=== PATIENT | male | born 1960 | race Caucasian/White ===

== ENCOUNTER 2019-08-02 20:22 | Inpatient (IN) | payer SELFPAY ==
[~2019-08-02] VITALS: Ht 182.9 cm; Wt 128.4 kg
--- NOTE | 2019-08-02 21:53 | PHYS DOC ---
Past Medical History Past Medical History: No Pertinent History Past Surgical History: Other Additional Past Surgical Histo: CAROTID SX Additional Information: 1/2 PACK/DAY Alcohol Use: Sober Drug Use: None Adult General Chief Complaint Chief Complaint: MECHANICAL FALL HPI HPI 58-year-old male presents to the emergency department with syncopal episode. Patient has abrasions to his face. Currently patient was found on the ground with loss of consciousness at the [facility]. He does not recall any events. Patient has a history of right carotid endarterectomy within the last 60 days. Patient denies any chest pain, he does have some shortness of breath, denies any nausea or vomiting at this time. He does complain of a headache. He does complain of abdominal pain on exam he has bruising appreciated to his right abdomen Review of Systems Review of Systems Constitutional: Denies fever or chills [] Respiratory: Denies cough or shortness of breath [] Cardiovascular: No additional information not addressed in HPI [] GI: Denies abdominal pain, nausea, vomiting, bloody stools or diarrhea [] Musculoskeletal: Denies back pain or joint pain [] Neurologic: + headache, focal weakness or sensory changes [] All other systems were reviewed and found to be within normal limits, except as documented in this note. Current Medications Current Medications Current Medications Medications (Trade) Dose Ordered Sig/[facility] Start Time Stop Time Status Last Admin Dose Admin Acetaminophen/ Hydrocodone Bitart (Lortab 5/325) 1 tab 1X ONCE 08/03/19 00:30 08/03/19 00:31 DC 08/03/19 00:13 1 TAB Info (CONTRAST GIVEN -- Rx MONITORING) 1 each PRN DAILY PRN 08/02/19 23:30 08/04/19 23:29 Iohexol (Omnipaque 300 Mg/ml) 75 ml 1X ONCE 08/02/19 23:30 08/02/19 23:31 DC 08/02/19 23:38 75 ML Morphine Sulfate (Morphine Sulfate) 4 mg 1X ONCE 08/02/19 23:00 08/02/19 23:01 DC 08/02/19 22:40 4 MG Ondansetron HCl (Zofran) 4 mg 1X ONCE 08/02/19 23:00 08/02/19 23:01 DC 08/02/19 22:40 4 MG Allergies Allergies Allergies Coded Allergies Type Severity Reaction Last Updated Verified No Known Drug Allergies 08/02/19 No Physical Exam Physical Exam Constitutional: Well developed, well nourished, no acute distress, non-toxic appearance. [] HENT: Normocephalic, atraumatic, bilateral external ears normal, oropharynx moist, no oral exudates, nose normal. [] Eyes: PERRLA, EOMI, conjunctiva normal, no discharge. [] Neck: Normal range of motion, no tenderness, supple, no stridor. [] Cardiovascular:Heart rate regular rhythm, no murmur [] Lungs & Thorax: Bilateral breath sounds clear to auscultation [] Abdomen: Bowel sounds normal, soft, TTP right lower abdomen, + bruising appreciated to right flank area[] Skin: Warm, dry, no erythema, no rash. [] Back: No tenderness, no CVA tenderness. [] Extremities: No tenderness, no edema. [] Neurologic: Alert and oriented X 3, no focal deficits noted. [] Psychologic: Affect normal, judgement normal, mood normal. [] Current Patient Data Vital Signs Vital Signs Date Time Temp Pulse Resp B/P (MAP) Pulse Ox O2 Delivery O2 Flow Rate FiO2 08/03/19 00:30 99 17 93 08/03/19 00:13 Room Air 08/02/19 20:31 97.5 128/80 (96) 97.5 Lab Values Laboratory Tests Test 08/02/19 22:20 White Blood Count 17.9 x10^3/uL (4.0-11.0) H Red Blood Count 5.15 x10^6/uL (4.30-5.70) Hemoglobin 14.4 g/dL (13.0-17.5) Hematocrit 43.8 % (39.0-53.0) Mean Corpuscular Volume 85 fL (79-100) Mean Corpuscular Hemoglobin 28 pg (25-35) Mean Corpuscular Hemoglobin Concent 33 g/dL (31-37) Red Cell Distribution Width 14.7 % (11.5-14.5) H Platelet Count 314 x10^3/uL (140-400) Neutrophils (%) (Auto) 84 % (31-73) H Lymphocytes (%) (Auto) 8 % (24-48) L Monocytes (%) (Auto) 7 % (0-9) Eosinophils (%) (Auto) 0 % (0-3) Basophils (%) (Auto) 0 % (0-3) Neutrophils # (Auto) 15.1 x10^3/uL (1.8-7.7) H Lymphocytes # (Auto) 1.4 x10^3/uL (1.0-4.8) Monocytes # (Auto) 1.3 x10^3/uL (0.0-1.1) H Eosinophils # (Auto) 0.1 x10^3/uL (0.0-0.7) Basophils # (Auto) 0.1 x10^3/uL (0.0-0.2) Segmented Neutrophils % 76 % (35-66) H Band Neutrophils % 4 % (0-9) Lymphocytes % 14 % (24-48) L Monocytes % 5 % (0-10) Basophils % 1 % (0-3) Platelet Estimate Adequate (ADEQUATE) Prothrombin Time 13.1 SEC (11.7-14.0) Prothrombin Time INR 1.0 (0.8-1.1) D-Dimer (Yoselyn) 0.91 ug/mlFEU (0.00-0.50) H Sodium Level 135 mmol/L (136-145) L Potassium Level 4.2 mmol/L (3.5-5.1) Chloride Level 99 mmol/L (98-107) Carbon Dioxide Level 26 mmol/L (21-32) Anion Gap 10 (6-14) Blood Urea Nitrogen 7 mg/dL (8-26) L Creatinine 0.8 mg/dL (0.7-1.3) Estimated GFR (Cockcroft-Gault) 100.0 BUN/Creatinine Ratio 9 (6-20) Glucose Level 147 mg/dL (70-99) H Calcium Level 9.0 mg/dL (8.5-10.1) Total Bilirubin 0.2 mg/dL (0.2-1.0) Aspartate Amino Transferase (AST) 16 U/L (15-37) Alanine Aminotransferase (ALT) 19 U/L (16-63) Alkaline Phosphatase 65 U/L (46-116) Troponin I Quantitative < 0.017 ng/mL (0.000-0.055) Total Protein 7.1 g/dL (6.4-8.2) Albumin 3.2 g/dL (3.4-5.0) L Albumin/Globulin Ratio 0.8 (1.0-1.7) L Laboratory Tests 08/02/19 22:20 Laboratory Tests 08/02/19 22:20 EKG EKG EKG reviewed, tachycardia, 124, normal axis appreciated[] Radiology/Procedures Radiology/Procedures [facility] [address] [place] [address] IMAGING REPORT Signed PATIENT: JENNIFER EDMOND ACCOUNT: [id number] : 1960 LOCATION: ER AGE: 58 SEX: M EXAM STATUS: REG ER ORD. PHYSICIAN: SAPNA MOTA MD REASON: fall, syncope, head injury, coumadin PROCEDURE: CT HEAD AND CERVICAL SPINE WO CT Head W/O Contrast: History: Pain status post fall with syncope and head injury Comparison: none Axial images were obtained without contrast. There is large old strokes in the left parietal lobe and the right occipital lobe. The fernandes and white matter appears normal and symmetrical for the patients age. There is no mass effect, extraaxial fluid collections or hydrocephalus. There is no gross bleed. There is no focal loss of fernandes-white matter distinction to suggest acute ischemia, i.e. stroke. Impression: Bilateral old strokes. No acute findings. End impression CT C-Spine without contrast: Clinical History: Pain status post fall Technique: Axial helical images of the cervical spine were obtained without contrast, axial coronal and sagittal reconstruction was performed. Findings: There is no loss of vertebral body stature. There is no prevertebral soft tissue swelling. The vertebral bodies are well aligned. There is straightening of the normal cervical lordosis which can be positional or could be chronic. The C1-C2 relationship is normal. The visualized osseous structures appear normal. Evaluation of the central canal is limited without contrast. There is multiple posterior disc bulges resulting in flattening of the thecal sac. There does not appear to be gross flattening of the cervical cord. There is moderate narrowing of multiple neuroforamen. Impression: No acute findings. Clinical correlation suggested. PQRS Compliance Statement: One or more of the following individualized dose reduction techniques were utilized for this examination: 1. Automated exposure control 2. Adjustment of the mA and/or kV according to patient size 3. Use of iterative reconstruction technique Electronically signed by: Rickie Raymundo III, MD (08/02/2019 11:36 PM) [facility] DICTATED and SIGNED BY: RICKIE RAYMUNDO III, MD DATE: 08/02/19 2336 [] [facility] [address] [place] [address] IMAGING REPORT Signed PATIENT: JENNIFER EDMOND ACCOUNT: [id number] : 1960 LOCATION: ER AGE: 58 SEX: M EXAM STATUS: REG ER ORD. PHYSICIAN: SAPNA MOTA MD REASON: Fall, right abdominal wall hematoma PROCEDURE: CT ABD PELV W/ IV CONTRST ONLY Study: CT abdomen/pelvis with intravenous contrast Indication: Fall. Right abdominal wall hematoma. Comparison: None. Technique: Helical CT imaging performed of the abdomen and pelvis after the intravenous administration of 75 cc Omnipaque 300 contrast. Sagittal and coronal reformats were obtained. One or more of the following individualized dose reduction techniques were utilized for this examination: 1. Automated exposure control 2. Adjustment of the mA and/or kV according to patient size 3. Use of iterative reconstruction technique. Findings: Mild basilar volume loss. Partially visualized coronary artery calcifications. No focal abnormality of the liver. Unremarkable gallbladder, pancreas, spleen and adrenal glands. Symmetric kidney size and enhancement. No hydroureteronephrosis. Unremarkable urinary bladder and prostate. Unremarkable colon. The appendix is not visualized. Nonobstructed small bowel. Unremarkable stomach. Mild scattered atherosclerotic calcifications. No free fluid or air. No adenopathy. Symmetric muscular bulk without evidence for a large intramuscular hematoma is. Ovoid soft tissue density focus within the subcutaneous tissues just to the left of the dorsal midline overlying the paraspinous musculature. This is seen on image 39 series 3 measuring approximately 4.1 cm transverse by 2.3 cm AP by 2.8 cm craniocaudal. This finding is well circumscribed and there are no surrounding inflammatory changes. Subcutaneous fatty reticulation along the lateral aspect of both hips appearing relatively symmetric. No displaced rib fracture is identified. No acute fracture seen to involve the visualized spine or pelvis. Manifestations of diffuse idiopathic skeletal hyperostosis and scattered degenerative changes. Impression: 1. No large body wall hematoma is identified or fracture of the visualized osseous structures. No acute intra-abdominal or pelvic abnormality. 2. Ovoid, well-circumscribed soft tissue density focus within the dorsal left paramidline subcutaneous fat. This is favored to represent a benign finding such as a sebaceous cyst or other inflammatory process. This is not related to acute trauma. Recommend correlation with direct inspection. If there is concern based on physical exam or if there is subsequent growth, nonemergent targeted sonography could be performed to evaluate for suspicious features. 3. Chronic findings as detailed above. Electronically signed by: CRISTIANE SMITH MD (08/02/2019 11:51 PM) [facility] DICTATED and SIGNED BY: CRISTIANE SMITH MD DATE: 08/02/19 9012 [facility] [address] [place] [address] IMAGING REPORT Signed PATIENT: JENNIFER EDMOND ACCOUNT: [id number] : 1960 LOCATION: [address] [place] [address] AGE: 59 SEX: M EXAM STATUS: ADM IN ORD. PHYSICIAN: SAPNA MOTA MD REASON: elevated ddimer, syncope PROCEDURE: LUNG VENT/PERFUSION SCAN(VQ) Study: NUCLEAR MEDICINE VENTILATION/PERFUSION SCAN History: Elevated d-dimer. Syncope. Comparison: None. Technique: Ventilation portion performed after inhalation of 15 mCi xenon-133. Perfusion portion performed after intravenous administration of 5 mCi Technetium 99m MAA. Anterior and posterior planar images of the lungs were obtained to include inspiration, equilibrium and washout phases for the ventilation component. Findings: Ventilation images: Symmetric radiotracer with inspiration and no retained activity on the washout phase. Perfusion images: Collectively there is decreased radiotracer deposition within the left lung relative to the right as well as more localized regions of decreased radiotracer activity within the left more so than right lungs, however there is still some activity in these regions suggesting the absence of a complete mismatch defect. IMPRESSION: Intermediate probability for pulmonary embolism. Electronically signed by: CRISTIANE SMITH MD (08/03/2019 5:38 AM) [id number] DICTATED and SIGNED BY: CRISTIANE SMITH MD DATE: 08/03/19 0538 Course & Med Decision Making Course & Med Decision Making Pertinent Labs and Imaging studies reviewed. (See chart for details) []58-year-old male presents to the emergency department with syncopal episode. Patient has abrasions to his face. Currently patient was found on the ground with loss of consciousness at the [facility]. He does not recall any events. Patient has a history of right carotid endarterectomy within the last 60 days. Patient denies any chest pain, he does have some shortness of breath, denies any nausea or vomiting at this time. He does complain of a headache. Labs/Imaging reviewed Evidence of elevated ddimer upon evaluation - v/q scan ordered --- intermediate probability of PE results early AM CT head negative for acute process Given syncope, will admit and follow Umer Disclaimer Umer Disclaimer This electronic medical record was generated, in whole or in part, using a voice recognition dictation system. Departure Departure Impression: Primary Impression: Syncope Disposition: ADMITTED INPATIENT Admitting Physician: KELECHI Condition: GUARDED Referrals: NO PCP (PCP) SAPNA MOTA MD Aug 02, 2019 21:53
[2019-08-02 22:27] LABS: BASO # 0.1 x10^3/uL (0.0-0.2); BASO % 0 % (0-3); EOS # 0.1 x10^3/uL (0.0-0.7); EOS % 0 % (0-3); HEMATOCRIT 43.8 % (39.0-53.0); HEMOGLOBIN 14.4 g/dL (13.0-17.5); LYMPH # 1.4 x10^3/uL (1.0-4.8); LYMPH % 8 % (24-48); MEAN CORPUSCULAR HEMOGLOBIN 28 pg (25-35); MEAN CORPUSCULAR HGB CONC 33 g/dL (31-37); MEAN CORPUSCULAR VOLUME 85 fL (79-100); MONO # 1.3 x10^3/uL (0.0-1.1); MONO % 7 % (0-9); NEUT # 15.1 x10^3/uL (1.8-7.7); NEUT % 84 % (31-73); PLATELET COUNT 314 x10^3/uL (140-400); RED BLOOD COUNT 5.15 x10^6/uL (4.30-5.70); RED CELL DISTRIBUTION WIDTH 14.7 % (11.5-14.5); WHITE BLOOD COUNT 17.9 x10^3/uL (4.0-11.0)
[2019-08-02 22:36] LABS: CREATININE 0.8 mg/dL (0.7-1.3); POTASSIUM 4.2 mmol/L (3.5-5.1)
[2019-08-02 22:37] LABS: PROTHROMBIN TIME PATIENT 13.1 SEC (11.7-14.0)
[2019-08-02 22:42] LABS: ALBUMIN 3.2 g/dL (3.4-5.0); ALBUMIN/GLOBULIN RATIO 0.8 (1.0-1.7); TOTAL BILIRUBIN 0.2 mg/dL (0.2-1.0); TOTAL PROTEIN 7.1 g/dL (6.4-8.2)
[2019-08-02 22:52] LABS: % BANDS 4 % (0-9); % BASOS 1 % (0-3); % LYMPHS 14 % (24-48); % MONOS 5 % (0-10); % SEGS 76 % (35-66); PLT ESTIMATE ADEQUATE (ADEQUATE)
[2019-08-02] MEDS ORDERED: MORPHINE SULFATE 4 MG/ML VIAL. IV ONE (23:00)
[2019-08-02] MEDS ORDERED: ONDANSETRON PF 4 MG/2 ML VIAL. IVP ONE (23:00)
[2019-08-02] MEDS ORDERED: IOHEXOL 300 MG/ML 100ML VIAL. ONE (23:20)
[2019-08-02] MEDS ORDERED: CONTRAST GIVEN. MC PRN (23:30)
[2019-08-02] MEDS ORDERED: IOHEXOL 300 MG/ML 100ML VIAL. IV ONE (23:30)
--- NOTE | 2019-08-02 23:39 | RAD ---
CT Head W/O Contrast: History: Pain status post fall with syncope and head injury Comparison: none Axial images were obtained without contrast. There is large old strokes in the left parietal lobe and the right occipital lobe. The fernandes and white matter appears normal and symmetrical for the patients age. There is no mass effect, extraaxial fluid collections or hydrocephalus. There is no gross bleed. There is no focal loss of fernandes-white matter distinction to suggest acute ischemia, i.e. stroke. Impression: Bilateral old strokes. No acute findings. End impression CT C-Spine without contrast: Clinical History: Pain status post fall Technique: Axial helical images of the cervical spine were obtained without contrast, axial coronal and sagittal reconstruction was performed. Findings: There is no loss of vertebral body stature. There is no prevertebral soft tissue swelling. The vertebral bodies are well aligned. There is straightening of the normal cervical lordosis which can be positional or could be chronic. The C1-C2 relationship is normal. The visualized osseous structures appear normal. Evaluation of the central canal is limited without contrast. There is multiple posterior disc bulges resulting in flattening of the thecal sac. There does not appear to be gross flattening of the cervical cord. There is moderate narrowing of multiple neuroforamen. Impression: No acute findings. Clinical correlation suggested. PQRS Compliance Statement: One or more of the following individualized dose reduction techniques were utilized for this examination: 1. Automated exposure control 2. Adjustment of the mA and/or kV according to patient size 3. Use of iterative reconstruction technique Electronically signed by: Remy Prince III, MD (08/02/2019 11:36 PM) [facility]
--- NOTE | 2019-08-02 23:53 | RAD ---
Study: CT abdomen/pelvis with intravenous contrast Indication: Fall. Right abdominal wall hematoma. Comparison: None. Technique: Helical CT imaging performed of the abdomen and pelvis after the intravenous administration of 75 cc Omnipaque 300 contrast. Sagittal and coronal reformats were obtained. One or more of the following individualized dose reduction techniques were utilized for this examination: 1. Automated exposure control 2. Adjustment of the mA and/or kV according to patient size 3. Use of iterative reconstruction technique. Findings: Mild basilar volume loss. Partially visualized coronary artery calcifications. No focal abnormality of the liver. Unremarkable gallbladder, pancreas, spleen and adrenal glands. Symmetric kidney size and enhancement. No hydroureteronephrosis. Unremarkable urinary bladder and prostate. Unremarkable colon. The appendix is not visualized. Nonobstructed small bowel. Unremarkable stomach. Mild scattered atherosclerotic calcifications. No free fluid or air. No adenopathy. Symmetric muscular bulk without evidence for a large intramuscular hematoma is. Ovoid soft tissue density focus within the subcutaneous tissues just to the left of the dorsal midline overlying the paraspinous musculature. This is seen on image 39 series 3 measuring approximately 4.1 cm transverse by 2.3 cm AP by 2.8 cm craniocaudal. This finding is well circumscribed and there are no surrounding inflammatory changes. Subcutaneous fatty reticulation along the lateral aspect of both hips appearing relatively symmetric. No displaced rib fracture is identified. No acute fracture seen to involve the visualized spine or pelvis. Manifestations of diffuse idiopathic skeletal hyperostosis and scattered degenerative changes. Impression: 1. No large body wall hematoma is identified or fracture of the visualized osseous structures. No acute intra-abdominal or pelvic abnormality. 2. Ovoid, well-circumscribed soft tissue density focus within the dorsal left paramidline subcutaneous fat. This is favored to represent a benign finding such as a sebaceous cyst or other inflammatory process. This is not related to acute trauma. Recommend correlation with direct inspection. If there is concern based on physical exam or if there is subsequent growth, nonemergent targeted sonography could be performed to evaluate for suspicious features. 3. Chronic findings as detailed above. Electronically signed by: CRISTIANE SMITH MD (08/02/2019 11:51 PM) [facility]
[2019-08-03] MEDS ORDERED: HYDROcodone/APAP 5/325MG 1 TAB TABLET PO ONE (00:30)
[2019-08-03 02:45] VITALS: BP 106/56
[2019-08-03] MEDS ORDERED: TRAZ-118 PO (02:53)
[2019-08-03] MEDS ORDERED: warfarin (02:53)
[2019-08-03] MEDS ORDERED: furosemide (02:53)
--- NOTE | 2019-08-03 04:13 | NUR ---
Patient to room at approximately 0200, per patient's report, assessment started at 0230, requests shower, wanted privacy, is informed that this clinical writer would be on outside of the bathroom door, due to the admission diagnosis of syncope, patient increases in agitation as this clinical writer asks him if he is doing alright, not dizzy, etc. when patient was finished with shower, the monitor reapplied, this clinical writer gets MRSA swab and nozin treatment, patient replies,"I told you I just got out of the hospital 3 days ago with the flu..what kind is it?...I don't need that. (to which he did not tell this clinical writer this), patient had said he had antibiotics for an infection at his carotid endartarectomy site, then patient reports to have been in the hospital 3 days ago..or a month ago.."I told you that..." This clinical writer attempts to explain protocol regarding MRSA, as in history (which he has), and living in a facility with many other people (as in [facility]), Patient shouts, "so do I need to be checked since I'm in here? there are a lot op people here>>>" This clinical writer walks out of the room....
--- NOTE | 2019-08-03 05:41 | RAD ---
Study: NUCLEAR MEDICINE VENTILATION/PERFUSION SCAN History: Elevated d-dimer. Syncope. Comparison: None. Technique: Ventilation portion performed after inhalation of 15 mCi xenon-133. Perfusion portion performed after intravenous administration of 5 mCi Technetium 99m MAA. Anterior and posterior planar images of the lungs were obtained to include inspiration, equilibrium and washout phases for the ventilation component. Findings: Ventilation images: Symmetric radiotracer with inspiration and no retained activity on the washout phase. Perfusion images: Collectively there is decreased radiotracer deposition within the left lung relative to the right as well as more localized regions of decreased radiotracer activity within the left more so than right lungs, however there is still some activity in these regions suggesting the absence of a complete mismatch defect. IMPRESSION: Intermediate probability for pulmonary embolism. Electronically signed by: CRISTIANE SMITH MD (08/03/2019 5:38 AM) [facility]
--- NOTE | 2019-08-03 06:38 | EKG ---
[facility] [address] [place] [address] Test Date: 2019-08-02 Test Time: 20:34:34 Pat Name: JENNIFER EDMOND Department: Room: Gender: M Cashier Wrapper: : 1960 Requested By: SAPNA MOTA Order Number: [id number] Reading MD: Measurements Intervals [place] Rate: 124 P: VT: QRS: 101 QRSD: 122 T: 28 QT: 342 QTc: 496 Interpretive Statements IRREGULAR RHYTHM, NO P-WAVE FOUND VENTRICULAR PREMATURE COMPLEX(ES) RVH WITH REPOLARIZATION ABNORMALITY QRS(T) CONTOUR ABNORMALITY CONSIDER ANTEROLATERAL INFARCT CONSISTENT WITH INFERIOR INFARCT PROBABLY OLD ABNORMAL ECG RI6.01 No previous ECG available for comparison
[2019-08-03 07:53] VITALS: BP 108/58
[2019-08-03] MEDS ORDERED: WARF2TAB96 PO (09:19)
[2019-08-03] MEDS ORDERED: FURO40TA4 PO (09:19)
--- NOTE | 2019-08-03 10:35 | NUR ---
Pt found in visitors parking lot by 2nd floor nursing staff. Pt stated he is "waiting on his sister to bring paperwork." This is the second time patient has tried to leave the unit today. Security has been notified. Addendum: 08/03/19 at 1056 by BONG ANDUJAR RN Pt walked back up to the unit. This RN then spoke to patient about not being able to leave the floor. Pt smacked his lips at patient and then said "I was just going out there to see when my sister was leaving from [place]." This RN stated that if he attempts to leave or does leave the floor again, then I will have him sign an AMA paper, because leaving the floor is not an option. Pt verbalized understanding. Will continue to monitor.
[2019-08-03] MEDS ORDERED: NICOTINE 21MG PATCH. TD SCH (11:00)
[2019-08-03] MEDS ORDERED: FUROSEMIDE 40 MG TABLET. PO SCH (11:00)
[2019-08-03 11:18] VITALS: BP 103/68
--- NOTE | 2019-08-03 12:18 | SSS ---
ADMIT DATE: 08/03/2019 CHIEF COMPLAINT: Syncope. HISTORY OF PRESENT ILLNESS: The patient is a pleasant 59-year-old male who had right carotid endarterectomy at another facility within the past month. Basically, he was feeling little dizzy yesterday and sat down. I think he stood back up and then had a syncopal episode. He did bump his head had some abrasions on his forehead. He did have a little bit of a headache when he presented to the ER. He was admitted overnight for observation. This morning, he is alert and oriented, wanting to go. I guess he lives at the [facility]. He states he is a homeless . He keeps leaving the floor and smoking downstairs. We are going to go ahead and let him go since he is doing well. His blood pressures are normal. PAST MEDICAL HISTORY: Carotid surgery and tobacco abuse about half pack per day. SOCIAL HISTORY: He is a homeless , does not drink or take drugs. He smokes. He lives at the [facility]. MEDICATIONS: Reviewed, please refer to the MRAD. REVIEW OF SYSTEMS: GENERAL: No history of weight change, weakness or fevers. SKIN: No bruising, hair changes or rashes. EYES: No blurred, double or loss of vision. NOSE AND THROAT: No history of nosebleeds, hoarseness or sore throat. HEART: No history of palpitations, chest pain or shortness of breath on exertion. LUNGS: Denies cough, hemoptysis, wheezing or shortness of breath. GASTROINTESTINAL: Denies changes in appetite, nausea, vomiting, diarrhea or constipation. GENITOURINARY: No history of frequency, urgency, hesitancy or nocturia. NEUROLOGIC: Denies history of numbness, tingling, tremor or weakness. PSYCHIATRIC: No history of panic, anxiety or depression. ENDOCRINE: No history of heat or cold intolerance, polyuria or polydipsia. EXTREMITIES: Denies muscle weakness, joint pain, pain on walking or stiffness. PHYSICAL EXAMINATION: VITALS: Within normal limits and are stable. GENERAL: No apparent distress. Alert and oriented. HEENT: He has some abrasions on his forehead. EYES: Extraocular muscles are intact, pupils are equally round and reactive to light and accommodation MUSCULOSKELETAL: Well developed, well nourished, good range of motion ENDOCRINE: No thyromegaly was palpated LYMPHATICS: No cervical chain or axillary nodes were noted HEMATOPOIETIC: No bruising NECK: Supple, no JVD, no thyromegaly was noted. LUNGS: Clear to auscultation in all lung harris without rhonchi or wheezing. HEART: RRR, S1, S2 present. Peripheral pulses intact, no obvious murmurs were noted. ABDOMEN: Soft, nontender. Positive bowel sounds no organomegaly, normal bowel sounds. EXTREMITIES: Without any cyanosis, clubbing, or edema. Pedal pulses intact, Homans sign is negative. NEUROLOGIC: Normal speech, normal tone. A & O x3, moves all extremities, no obvious focal deficits. PSYCHIATRIC: Normal affect, normal mood. Stable. SKIN: No ulcerations or rashes, good skin turgor, no jaundice. VASCULAR: Good capillary refill, neurovascular bundle appears to be intact. ASSESSMENT AND PLAN: Resolving syncope, suspect vasovagal. We will go ahead and discharge. DISPOSITION: Home. ACTIVITY: As tolerated. DIET: Low sodium. MEDICATIONS: Please see MRAD. TOTAL TIME: 32 minutes. CRISTINAL Varinder STEWARD DO DR: [email or web address] JOB#: [id number] / [id number]
--- NOTE | 2019-08-03 13:09 | NUR ---
Discharge Note: JENNIFER EDMOND [address] Discharge instructions and discharge home medications reviewed with Patient and a copy given. All questions have been answered and understanding verbalized. The following instructions and handouts were given: f/u with PCP within two weeks. Discontinued lines and drains: Peripheral IV intact. Patient discharged to Home or Self Care with SELF via [facility]
[2019-08-03] MEDS ORDERED: WARFARIN 2 MG TABLET. PO SCH (16:00)
[2019-08-03] MEDS ORDERED: traZODone 50 MG TABLET. PO SCH (21:00)
== END 2019-08-03 13:07 | disposition home or self-care (01) | DRG 312 ==
LOC: ER 20:22 → 6 SOUTH 08-03 00:40
PROVIDERS: ADMIT Internal Medicine; ATTEND Internal Medicine
DX: R55 Syncope and collapse (principal); S00.81XA Abrasion of other part of head, initial encounter; Z59.0 Homelessness; F17.200 Nicotine dependence, unspecified, uncomplicated; W18.30XA Fall on same level, unspecified, initial encounter; Y93.89 Activity, other specified; Y92.89 Other specified places as the place of occurrence of the external cause; Y99.8 Other external cause status
CPT/HCPCS: 36415; 70450; 72125; 74177; 78582; 80053; 84484; 85007; 85025; 85379; 85610; 93005; 96374; A9540; A9558; J2270; J2405; Q9967; G0378